=== PATIENT | female | born 1955 | race American Indian/Alaskan Native ===

== ENCOUNTER 2018-02-07 08:32 | Outpatient (CLI) | payer OTHER | END 2018-02-07 09:00 | disposition home or self-care (01) | LOC: NUCLEAR 08:32 | DX: I10 Essential (primary) hypertension (principal); R07.89 Other chest pain ==

== ENCOUNTER → 2019-06-05 09:12 | Outpatient (CLI) | payer OTHER | END | disposition home or self-care (01) | LOC: LAB 09:12 | DX: H25.012 Cortical age-related cataract, left eye (principal); D68.8 Other specified coagulation defects ==

== ENCOUNTER 2019-06-05 10:23 | Outpatient (CLI) | payer OTHER | END 2019-06-05 12:34 | disposition home or self-care (01) | LOC: MAMO-SONO 10:23 | DX: N60.11 Diffuse cystic mastopathy of right breast (principal); Z12.31 Encounter for screening mammogram for malignant neoplasm of breast; Z87.898 Personal history of other specified conditions ==

== ENCOUNTER 2019-06-20 14:55 | Outpatient (CLI) | payer OTHER | END 2019-06-20 15:00 | disposition home or self-care (01) | LOC: LAB 14:55 | DX: N30.00 Acute cystitis without hematuria (principal); R82.79 Other abnormal findings on microbiological examination of urine ==

== ENCOUNTER 2019-07-27 09:30 | Outpatient (CLI) | payer OTHER | END 2019-07-27 10:22 | disposition home or self-care (01) | LOC: LAB 09:30 | DX: H25.011 Cortical age-related cataract, right eye (principal); D68.8 Other specified coagulation defects ==

== ENCOUNTER 2019-07-30 12:23 | Outpatient (CLI) | payer OTHER | END 2019-07-30 15:00 | disposition home or self-care (01) | LOC: LAB 12:23 | DX: N30.00 Acute cystitis without hematuria (principal) ==

== ENCOUNTER → 2019-09-10 | Outpatient (CLI) | payer OTHER | END | disposition home or self-care (01) | LOC: RAD 13:46 | DX: M25.652 Stiffness of left hip, not elsewhere classified (principal); M54.5 Low back pain ==

== ENCOUNTER 2020-06-10 11:23 | Outpatient (CLI) | payer OTHER | END 2020-06-10 11:31 | disposition home or self-care (01) | LOC: MAMO-SONO 11:23 | PROVIDERS: ATTEND Obstetrics & Gynecology | DX: N60.11 Diffuse cystic mastopathy of right breast (principal); Z12.31 Encounter for screening mammogram for malignant neoplasm of breast ==

== ENCOUNTER 2021-02-17 08:20 | Outpatient (CLI) | payer OTHER | END 2021-02-17 08:21 | disposition home or self-care (01) | LOC: NUCLEAR 08:20 | PROVIDERS: ATTEND Internal Medicine Cardiovascular Disease | DX: G45.8 Other transient cerebral ischemic attacks and related syndromes (principal) ==

== ENCOUNTER 2022-04-07 09:54 | Outpatient (CLI) | payer OTHER | END 2022-04-07 09:58 | disposition home or self-care (01) | LOC: RAD 09:54 | PROVIDERS: ATTEND Internal Medicine Cardiovascular Disease | DX: M12.9 Arthropathy, unspecified (principal) ==

== ENCOUNTER 2022-04-13 08:11 | Outpatient (CLI) | payer OTHER | END 2022-04-13 08:19 | disposition home or self-care (01) | LOC: NUCLEAR 08:11 | PROVIDERS: ATTEND Internal Medicine Cardiovascular Disease | DX: M81.0 Age-related osteoporosis without current pathological fracture (principal); E55.9 Vitamin D deficiency, unspecified; I87.2 Venous insufficiency (chronic) (peripheral) ==

== ENCOUNTER 2022-06-02 12:44 | Outpatient (CLI) | payer OTHER | END 2022-06-02 12:45 | disposition home or self-care (01) | LOC: RAD 12:44 | PROVIDERS: ATTEND Chiropractor Sports Physician | DX: M25.562 Pain in left knee (principal) ==

== ENCOUNTER 2022-12-14 08:26 | Outpatient (CLI) | payer OTHER | END 2022-12-14 08:33 | disposition home or self-care (01) | LOC: MRI 08:26 | PROVIDERS: ATTEND Chiropractor Sports Physician | DX: M54.17 Radiculopathy, lumbosacral region (principal) | CPT/HCPCS: 72148 ==

== ENCOUNTER 2024-09-11 13:55 | Outpatient (CLI) | payer OTHER | END 2024-09-11 13:59 | disposition home or self-care (01) | LOC: RAD 13:55 | PROVIDERS: ATTEND Chiropractor Sports Physician | DX: M25.532 Pain in left wrist (principal) ==